=== PATIENT | male | born 1980 | race Asian ===

== ENCOUNTER 2024-08-20 15:51 | Emergency (ER) | payer MEDICAID ==
[~2024-08-20] VITALS: Ht 167.6 cm; Wt 63.6 kg
[2024-08-20 15:59] VITALS: TEMP 98.1
[2024-08-20] MEDS ORDERED: LOSA-382 PO (16:00)
[2024-08-20 18:00] VITALS: BP 129/79; PULSE 81; RESP 18; O2SAT 100
[2024-08-20] MEDS: METOCLOPRAMIDE HCL 10 MG TABLET PO ONE (18:25)
[2024-08-20] MEDS: ACETAMINOPHEN 325 MG TABLET PO ONE (18:25)
[2024-08-20] MEDS: IBUPROFEN 400 MG TABLET PO ONE (18:25)
[2024-08-20] MEDS ORDERED: METO5TAB95 PO (20:19)
== END 2024-08-20 20:52 | disposition home or self-care (01) ==
LOC: EMS 15:54
DX: G43.909 Migraine, unspecified, not intractable, without status migrainosus (principal); I73.00 Raynaud's syndrome without gangrene; I10 Essential (primary) hypertension; Z79.899 Other long term (current) drug therapy; Z72.89 Other problems related to lifestyle
CPT/HCPCS: 99284; Z7502; Z7610